=== PATIENT | female | born 1955 | race Caucasian/White ===

== ENCOUNTER 2018-12-08 20:25 | Inpatient (IN) ==
[2018-12-08] MEDS ORDERED: SODIUM CHLORIDE 0.9% INJ ONE ×3 (21:04→23:20)
[2018-12-08] MEDS ORDERED: NS 1,000 ML IV ONE (21:04)
[2018-12-08] MEDS ORDERED: PROTONIX IV ONE (21:04)
[2018-12-08] MEDS ORDERED: NEXIUM IV ONE (21:15)
[2018-12-08 21:38] LABS: BASO# 0.06 X1000 (0.0-0.2); BASO% 0.5 % (0.0-0.8); EOS# 0.05 X1000 (0.0-0.7); EOS% 0.4 % (0.0-10.0); HEMATOCRIT 24.7 % (37.0-47.0); HEMOGLOBIN 7.8 g/dL (12.0-16.0); IMM GRAN# 0.02 X1000 (0.0-0.04); IMM GRAN% 0.2 % (0.0-0.5); LYMPH% 13.1 % (20.5-51.1); MCH 31.5 PG (27-31); MCHC 31.6 g/dL (33-37); MCV 99.6 FL (81-99); MONO# 0.68 X1000 (0.11-0.59); MPV 8.2 FL (7.4-10.4); NEUT% 79.8 % (42.2-75.2); PLT 358 X1000 (130-400); RBC 2.48 XMIL (4.2-5.4); RDW 13.9 % (11.5-14.5); WBC 11.41 X1000 (4.8-10.8)
[2018-12-08 22:00] LABS: AGAP 9; ALB/GLOB RATIO 1.6; ALBUMIN 3.6 g/dL (3.5-5.0); ALKALINE PHOSPHATASE 36 U/L (32-104); BUN 32 mg/dL (8-22); CALCIUM 8.4 mg/dL (8.8-10.2); CHLORIDE 109 mmol/L (98-107); COSMO 293; CREATININE 0.8 mg/dL (0.5-0.9); ESTIMATED GFR > 60; GLUCOSE 118 mg/dL (70-104); GOT 11 U/L (10-30); GPT 10 U/L (10-36); POTASSIUM 4.8 mmol/L (3.5-5.1); SODIUM 143 mmol/L (136-145); TCO2 25 mmol/L (25-35); TOTAL BILIRUBIN 0.15 mg/dL (0.20-1.00); TOTAL PROTEIN 5.8 g/dL (6.3-8.3)
[2018-12-09] MEDS ORDERED: ZOFRAN IV PRN (00:29)
[2018-12-09] MEDS ORDERED: MORPHINE IV PRN (00:35)
[2018-12-09 00:43] LABS: INR 1.03; PROTIME 14.3 Seconds (11.0-16.0)
--- NOTE | 2018-12-09 00:51 | PROVIDER DOCUMENTATION ---
This chart was entered by Ara Phillips Scribe, acting as scribe for Melissa Klein MD. HPI-Abdominal Pain/GI Problem - General Chief Complaint: GI Bleed Stated Complaint: VOMITING BLOOD Time Seen by Provider: 12/08/18 20:50 Source: patient Allergies/Adverse Reactions: Patient Allergies Allergy/AdvReac Type Severity Reaction Status Date / Time Sulfa (Sulfonamide Allergy Intermediate RASH Verified 02/23/16 19:33 Antibiotics) Home Medications: Home Medication List Medication Instructions Recorded Confirmed Last Taken Type Cabergoline 2 mg PO DIRECTED 02/23/16 12/08/18 02/22/16 History Citalopram Hydrobromide 60 mg PO DAILY 02/23/16 12/08/18 02/22/16 History [Citalopram HBr] Lisinopril 20 mg PO DAILY 02/23/16 12/08/18 02/22/16 History Triamterene/Hydrochlorothiazid 1 each PO DAILY 02/23/16 12/08/18 02/22/16 History [Triamterene-Hctz 37.5-25 mg Cp] Hydrocodone Bit/Acetaminophen 1 ea PO BID 12/08/18 12/08/18 Unknown History [Hydrocodon-Acetaminophn 10-325] - History of Present Illness-ABD Nature of Presenting Problems: Pt is 63/F presenting to ED w/ c/o hematemesis 1-2 times today. Pt sts that she has hx up upper GI bleeding and has had to have transfusion for it in the past. Pt sts that she has had some weakness, but that is the only sx. Quality of Pain: reports: none Severity in ED: reports: moderate Onset/Duration: reports: just prior to arrival Timing: reports: still present Activities at Onset: reports: none Exposure to sick contacts?: No Modifying Factors: improves with: nothing Associated Symptoms: reports: vomiting Last BM: unsure Dark Stools Present?: reports: none noticed Rectal Bleeding: reports: none Rectal Pain: reports: none Emesis Description: reports: coffee grounds Bruising or Bleeding Gums?: No Similar Symptoms Previously?: No Recently seen or treated by another doctor?: No Review of Systems - Adult - REVIEW OF SYSTEMS - ADULT Constitutional: reports: no symptoms reported. denies: chills, fever Eyes: reports: no symptoms reported Ears, Nose, Mouth & Throat: reports: no symptoms reported Cardiovascular: reports: no symptoms reported Respiratory: reports: no symptoms reported Gastrointestinal: reports: hematemesis. denies: abdominal pain, nausea, rectal bleeding, vomiting Genitourinary: reports: no symptoms reported Musculoskeletal: reports: no symptoms reported Integumentary: reports: no symptoms reported Neurological: reports: no symptoms reported. denies: dizziness/vertigo, headache/migraines Psychiatric: reports: no symptoms reported Endocrine: reports: no symptoms reported Hematologic/Lymphatic: reports: no symptoms reported Allergic/Immunologic: reports: no symptoms reported All Other Systems: Reviewed and Negative Past History - Adult - PAST MEDICAL HISTORY-ADULT Review of Records: reports: Old Records Reviewed, Nursing Assessment Review, Medications Reviewed, Social history reviewed & non-contributory. Major Childhood Illnesses: reports: denies history Cardiovascular: reports: HTN Respiratory: reports: denies history Gastrointestinal: reports: GI bleed, ulcer Obstetrical/Gynecological: reports: denies history Genitourinary: reports: denies history Musculoskeletal: reports: denies history Neurological: reports: denies history Endocrine/Immune: reports: denies history Other Conditions: reports: denies history - PRIOR SURGERIES/PROCEDURES Surgical/Procedure History: reports: hysterectomy, , breast (BIOPSY) - IMMUNIZATION STATUS Childhood Immunizations: See Nurse Assessment Flu Vaccine: See Nurse Assessment - SOCIAL HISTORY Smoking: denies, non-smoker Substance Use: none/never Alcohol Use Frequency: never Living Situation: family Physical Exam-General - PHYSICAL EXAM-ADULT Initial Vital Signs Reviewed: Yes - CONSTITUTIONAL General Appearance: appears well, alert, no apparent distress - EYES Eyes: PERRL/EOMI, pink conjunctivae - HEAD, EARS, NOSE, MOUTH & THROAT HENMT: normocephalic/atraumatic, moist mucous membranes, normal ENT inspection - NECK Neck: non-tender, full range of motion, supple, normal inspection - RESPIRATORY Respiratory: lungs clear - CARDIOVASCULAR Cardiovascular: regular rate, rhythm - GASTROINTESTINAL (ABDOMEN) Abdominal Exam: normal bowel sounds, non tender, soft. negative: distended, rebound, tenderness - LYMPHATIC Lymphatic: no adenopathy - MUSCULOSKELETAL Back Exam: normal inspection, no CVA tenderness, no vertebral tenderness Extremity: normal range of motion, non-tender, normal gait, normal inspection - SKIN Integumentary: normal color, warm/dry - NEUROLOGIC Neurologic: grossly normal - PSYCHIATRIC Psych/Mental Status: normal mood/affect, normal thought content, normal thought process, oriented x 3 Progress - PLAN OF CARE/RESULTS Progress/Plan/Lab Results: Laboratory Results - last 24 hr 12/08/18 12/08/18 21:25 21:25 WBC 11.41 H RBC 2.48 L Hgb 7.8 L Hct 24.7 L MCV 99.6 H MCH 31.5 H MCHC 31.6 L RDW Std Deviation 13.9 Plt Count 358 MPV 8.2 Immature Gran % (Auto) 0.2 Neut % (Auto) 79.8 H Lymph % (Auto) 13.1 L Reynolds % (Auto) 6.0 Eos % (Auto) 0.4 Baso % (Auto) 0.5 Immature Gran # (Auto) 0.02 Neut # (Auto) 9.10 H Lymph # (Auto) 1.50 Reynolds # (Auto) 0.68 H Eos # (Auto) 0.05 Baso # (Auto) 0.06 Sodium 143 Potassium 4.8 Chloride 109 H Carbon Dioxide 25 Anion Gap 9 BUN 32 H Creatinine 0.8 Estimated GFR/1.73 m2 > 60 BUN/Creatinine Ratio 40 Glucose 118 H Calculated Osmolality 293 Calcium 8.4 L Total Bilirubin 0.15 L AST 11 ALT 10 Alkaline Phosphatase 36 Total Protein 5.8 L Albumin 3.6 Globulin 2.2 Albumin/Globulin Ratio 1.6 Orders Category Date Time Status CBC WITH DIFF [HEME] Stat Lab 12/08/18 21:25 Completed COMPREHENSIVE METABOLIC PANEL [CHEM] Stat Lab 12/08/18 21:25 Completed OCCULT BLOOD NON-FECES Stat Lab 12/08/18 21:04 Uncollected OCCULT BLOOD SCREENING [STOOL] Stat Lab 12/08/18 21:04 Uncollected PRBC [LRPC (RED CELLS)] [BBK] Stat Lab 12/08/18 21:54 Uncollected TYPE & SCREEN [BBK] Stat Lab 12/08/18 21:49 Uncollected 0.9% Sodium Chloride Inj [Ns] 1,000 ml Med 12/08/18 21:04 Active IV 999 mls/hr Esomeprazole [Nexium] Med 12/08/18 21:15 Discontinued 40 mg IV NOW ONE Sodium Chloride 0.9% Med 12/08/18 21:15 Discontinued 5 ml INJ NOW ONE Result Diagrams: 12/08/18 21:25 12/08/18 21:25 - CONSULTS/PCP/HOSPITALIST Notification #1 *Consult/PCP/Hospitalist*: dr. Naranjo Time Discussed: 23:43 Consult Disposition: Admit Departure - Departure Date of Disposition Decision: 12/09/18 Time of Disposition Decision: 00:50 DIAGNOSIS: GI bleed Disposition: ADMITTED INPATIENT 09 Certified Medical Emergency: Emergent Condition: Stable - Critical Care Note This patient required my direct & personal management of CC.: No Attestation - Physician/ ALBER Attestation Patient care was provided by Advanced Practice Provider:: No The physician spent face to face time with patient:: Yes Advanced Practice Provider documentation review:: Supervising physician onsite and consulted in the evaluation and care of this patient. The physician did have a face to face encounter with the patient. This chart was documented by the indicated scribe, (Ara Phillips, Scribe) and accurately reflects the services I performed and decisions made by me, Melissa Klein MD, as attested by the provider's signature.
--- NOTE | 2018-12-09 01:58 | HISTORY AND PHYSICAL ---
ATTENDING PHYSICIAN: Butch Naranjo MD. PRIMARY CARE PROVIDER: FLORENTIN Conley. CHIEF COMPLAINT: Black emesis. HISTORY OF PRESENT ILLNESS: This is a 63-year-old female who presents to the ER with past medical history of GI bleed with ulcer that was cauterized by Dr. 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 The patient states that she started having vomiting of dark black emesis today. The patient states that she did that 2 times today, and that she also had a dark tarry stool with some blood noted in the ER today. The patient is not complaining of abdominal pain. The patient does not admit to taking any over the counter NSAIDS or aspirin. The patient does have arthritis, but she takes [place] 10mg twice a day for that. The patient is not complaining of any pain at this time. States her urination has been fine. She has had no dysuria or burning with her urine. LABORATORY FINDINGS: In the ER show increased white blood cell count 11.41 with decreased red blood cell count of 2.48, and decreased hemoglobin of 7.8, and decreased hematocrit of 24.7. PAST MEDICAL HISTORY: GI bleed with ulcer that was cauterized by Dr. Tillman 2 years ago, hypertension, arthritis, depression, tumor on the pituitary gland from increased prolactin levels. PAST SURGICAL HISTORY: Hysterectomy, , and breast reduction. FAMILY HISTORY: Her mother from breast cancer. Father from lung cancer. She has a sister that has endometrial cancer 3 times, hypertension, and diabetes. 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 She does not smoke. She does not drink any alcohol. She denies any illicit drug abuse. ALLERGIES: Sulfa. MEDICATIONS: Lisinopril 20 mg p.o. daily, Celexa 40 mg p.o. daily, Cabergoline 2 mg p.o. twice a week, [place]bury 10s, one tablet p.o. b.i.d., triamterene/hydrochlorothiazide 37.5-25 mg, 1 tablet p.o. daily. LABS AND DIAGNOSTICS: White blood cell count 11.41, red blood cell count 2.48, hemoglobin 7.8, hematocrit 24.7, MCV 99.6, MCH 31.5, MCHC 31.6, platelet count 358,000. Fibrinogen is 377. Sodium is 143, potassium is 4.8, chloride 109, carbon dioxide 25, BUN 32, creatinine is 0.8. Estimated GFR is greater than 60, glucose is 118, calcium is 8.4, total bilirubin is 0.15, AST is 11, ALT is 10, alkaline phosphatase is 36. PT is 14.3, INR is 1.03. REVIEW OF SYSTEMS: A 12-point review of system has been obtained, and all are negative except what is stated above in HPI. PHYSICAL EXAMINATION: VITAL SIGNS: Pulse rate 90, respiratory rate 16, blood pressure is 112/77, O2 sats 98% on room air. Weight is 170 pounds. Height is 5 feet 6 inches. GENERAL: This is a 63-year-old female. She is lying in the ER stretcher. She is in no acute distress at present time. She is well nourished and well developed. HEENT: Atraumatic, normocephalic. Pupils equal, round, reactive to light. Mucous membranes are moist. NECK: Supple. No lymphadenopathy. Trachea is midline. No JVD. CARDIOVASCULAR: Regular rate and rhythm. No murmurs, gallops, or rubs. RESPIRATORY: Lung sounds are clear with equal chest excursion. Respirations are nonlabored. No accessory muscle usage. GASTROINTESTINAL: Abdomen is soft and tender, nondistended. Bowel sounds present x4. NEUROLOGIC: Cranial nerves 2 through 12 intact. The patient is awake, alert, oriented, able to follow all commands. No deficits noted. MUSCULOSKELETAL: Full distal strength noted. No abnormality of gait or no deformities. EXTREMITIES: No clubbing, cyanosis, or edema noted. DP and PT pulses are present and palpable. SKIN: Warm, dry, and intact. No rashes, bruises. No diaphoresis. ASSESSMENT AND PLAN: 1. Gastrointestinal bleed. We will admit this patient to the ICU unit. The patient is having acute blood loss. She has had vomiting a couple times of dark emesis. She has also had bloody stool noted in the ER. We are going to transfuse this patient with 1 unit of blood. We will recheck the hemoglobin and hematocrit in the morning. We have consulted Dr. Spear for Gastroenterology management. We are also going to start this patient on IV fluid hydration, normal saline 100 mL/h. 2. Hypertension. We will hold off on all p.o. medications at this time, until patient is seen by Gastroenterology. Blood pressure is stable at this time, 112/77. 3. Arthritis. The patient does take [place] twice a day. She has some arthritis in her shoulder and noted in her back, so we are going to start the patient on morphine p.r.n. for her arthritis. 4. Gastrointestinal prophylaxis. We are going to start this patient on Nexium 40 mg IV b.i.d. 5. Deep venous thrombosis prophylaxis. We will start this patient on SCDs. She cannot have any blood thinners at this time as she is having acute gastrointestinal bleed. We will admit this patient to the ICU. We are going to hold off on all p.o. medications at this time, until she is seen by GI. We are going to keep the patient n.p.o. We are going to start her on IV fluid hydration. We are going to give her a unit of blood and recheck hemoglobin and hematocrit in the morning, after the blood is transfused. We are going to consult Dr. Spear for acute GI bleed. I have ordered Zofran for nausea, I have ordered morphine for her arthritis pain. We are going to monitor this patient closely. Dictated by FLORENTIN Mckay for Butch Naranjo MD I have performed a face to face diagnostic evaluation. Labs/ Xrays- reviewed. Exam- chest- clear, CV- regular. AP- GI Bleed- admit, NPO, GI consult, PPI. Dr. Naranjo cc: MD Ivan Georges MD Alicia L. Hamman, CRNP MTDD
[2018-12-09] MEDS: NS 1,000 ML IV SCH ×3 (02:16→20:22)
[2018-12-09 05:37] LABS: BASO# 0.04 X1000 (0.0-0.2); BASO% 0.5 % (0.0-0.8); EOS# 0.03 X1000 (0.0-0.7); EOS% 0.4 % (0.0-10.0); HEMOGLOBIN 7.2 g/dL (12.0-16.0); LYMPH# 1.57 X1000 (1.2-3.4); LYMPH% 20.6 % (20.5-51.1); MCH 32.6 PG (27-31); MCHC 32.7 g/dL (33-37); MCV 99.5 FL (81-99); MONO# 0.62 X1000 (0.11-0.59); MONO% 8.1 % (1.7-9.3); MPV 8.6 FL (7.4-10.4); NEUT# 5.36 X1000 (1.4-6.5); NEUT% 70.4 % (42.2-75.2); PLT 284 X1000 (130-400); RBC 2.21 XMIL (4.2-5.4); RDW 13.6 % (11.5-14.5); WBC 7.62 X1000 (4.8-10.8)
[2018-12-09 05:45] LABS: AGAP 7; BUN 25 mg/dL (8-22); CALCIUM 8.5 mg/dL (8.8-10.2); CHLORIDE 110 mmol/L (98-107); COSMO 286; CREATININE 0.6 mg/dL (0.5-0.9); ESTIMATED GFR > 60; GLUCOSE 102 mg/dL (70-104); POTASSIUM 4.3 mmol/L (3.5-5.1); SODIUM 141 mmol/L (136-145); TCO2 24 mmol/L (25-35)
--- NOTE | 2018-12-09 07:33 | Diag Imaging Result Doc PS360 ---
KUB ABDOMEN - 12/09/2018 INDICATION: GI bleed COMPARISON: None FINDINGS: There is a nonobstructive bowel gas pattern. No free air or abdominal calcifications. IMPRESSION: No acute disease. Electronically signed by Tony Vo 12/09/2018 7:31 AM
[2018-12-09] MEDS ORDERED: PROTONIX IV SCH (09:00)
[2018-12-09] MEDS: NEXIUM IV SCH ×2 (09:55→20:22)
--- NOTE | 2018-12-09 10:09 | GASTROENTEROLOGY CONSULTATION ---
DATE: 12/09/2018 REASON FOR CONSULTATION: Hematemesis and melena. HISTORY OF PRESENT ILLNESS: Ms. 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 Started at 12:30 p.m. yesterday while at work. She went home and around 3 p.m. had a fall from a standing position without any acute injuries. At that time she had another episode of hematemesis with black liquid and therefore presented here to the ED. While in the ED she had 2 episodes of melena. She complains of only associated weakness. No abdominal pain, gross hematemesis or bright red blood or hematochezia. She denies any weight loss. She was at her usual state of health prior to onset. She had a colonoscopy by Dr. Tillman 2 years ago. She is not on any blood thinners and avoids NSAIDs given her prior bleeding history. REVIEW OF SYSTEMS: As per HPI, otherwise 12 point review of systems is negative. PAST MEDICAL HISTORY: As per HPI. PAST SURGICAL HISTORY: Hysterectomy, , bilateral breast reduction. FAMILY HISTORY: No family history of GI malignancies. SOCIAL HISTORY: No smoking, alcohol or drug use. MEDICATIONS: Lisinopril, Celexa, Dyazide, Cabergoline and Sylvia. ALLERGIES: To sulfa. PHYSICAL EXAMINATION: Vital Signs: Temperature 98.2, heart rate 73, respiratory rate 20, blood pressure 112/67, O2 saturation 97% on room air. General: Patient is awake, alert, oriented, in no acute distress. HEENT: Sclerae are anicteric. Moist mucous membranes. Extraocular motor intact. Neck: Supple. Bounding IJ pulse. No JVD. Cardiac: Regular rate and rhythm. No murmurs. Lungs: Clear to auscultation bilaterally. No wheezing. Abdomen: Soft, nontender, nondistended. Normoactive bowel sounds. No rebound or guarding. Extremities: No clubbing, cyanosis, or edema. Neurologic: Nonfocal. LABS: White count of 7.6 from 11.4 yesterday, hemoglobin is 7.2 from 7.8 yesterday after 1 unit of packed red blood cells, platelets of 284,000. INR 1.03. Sodium 141, potassium of 4.3, chloride of 110, bicarb 24, BUN of 25, creatinine 0.6, glucose of 102. LFTs are within normal limits. TSH of 0.02. IMAGING: Abdominal x-ray shows no acute disease. ASSESSMENT AND PLAN: Ms. Glenny Israel is a 63-year-old woman with past medical history of hypertension and prior bleeding duodenal ulcers, history of gastric ulcers, esophageal ulcer, duodenal diverticulum, and angiectasias who presents with recurrent hematemesis with black liquid and melena. Her hemoglobin today is 7.2 after 1 unit of packed red blood cells from 7.8, which is concerning for ongoing bleeding. Her abdomen is benign. Her vital signs are stable currently. Her coags are within normal limits. Platelets are normal. Her last hemoglobin is unknown. Her MCV is 99.6. She is NPO currently. She is receiving Nexium 40 mg IV q.12, IV fluids, antiemetics as needed and morphine for pain. We will plan for diagnostic EGD today to evaluate for bleeding ulcers, particularly in the site of her prior duodenal ulcers seen in the duodenal diverticulum in 2016 in 2014. We will continue to trend her hemoglobin and hematocrit every 6 to 8 hours pending her endoscopic findings. Thank you for this consult. We will follow with you. Please call with any questions or concerns. # GI bleed # History of PUD # Duodenal diverticulum # Anemia # History of small bowel angiectasias cc: Michael Blount MD [facility]
[2018-12-09] MEDS ORDERED: XYLOCAINE-MPF 2% ONE (11:45)
[2018-12-09] MEDS ORDERED: DIPRIVAN 1% ONE (11:46)
--- NOTE | 2018-12-09 12:44 | PROGRESS NOTE ---
DATE: 12/09/2018 SUBJECTIVE: The patient's chart was reviewed. 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 Hemoglobin and hematocrit upon admission were 7.8 and 24.7. Vital signs were reasonably stable with a blood pressure 112/77. The patient was started on IV fluids. One unit of packed red blood cells were provided. This morning, her hemoglobin hematocrit have dropped despite receiving that 1 unit of blood. Hemoglobin and hematocrit are 7.2 and 22.0. Vital signs, however, remain acceptable. She has had 3 additional melenic stools since admission, the last approximately 2 to 2-1/[address] Spear has been consulted. Urgent EGD is scheduled in the next several hours. The patient denies fevers, chills, nausea, vomiting, or shortness of breath at present time. OBJECTIVE: Vital signs: T-max 98.5 degrees, heart rate 84 to 91, respirations 13 to 17, blood pressure 102 to 151/67 to 88. General: Well nourished, well developed, no acute distress. Cardiovascular: Regular rate and rhythm. No significant murmurs, rubs, or gallops. Pulmonary: Clear to auscultation bilaterally. Abdomen: Soft, nontender, nondistended. Positive bowel sounds. Extremities: Moves all extremities well. No significant clubbing, cyanosis, or edema. Dermatologic: Evaluation reveals no evidence of rash. LABORATORY DATA: White blood cell count 7.62, hemoglobin 7.2, hematocrit 22.0, platelet count 284,000. Sodium 141, potassium 4.3, chloride 110, bicarb 24, BUN 25, creatinine 0.6, glucose 102, calcium 8.5. TSH 0.02. ASSESSMENT AND PLAN: 1. Upper gastrointestinal bleed - patient's hemoglobin and hematocrit remain low despite transfusion. As she does appear to be actively bleeding, we will transfuse 1 additional unit of packed red blood cells. EGD is scheduled for the next several hours. We will continue IV proton pump inhibitor. We will continue IV fluids. We will hold patient n.p.o. 2. Hypertension - patient's home medications have been held. Blood pressures are reasonably controlled although intermittently low at present time. We will follow this closely, especially in the setting of an upper gastrointestinal bleed. 3. Arthritis - the patient is treated with [place] twice daily as an outpatient. As-needed morphine was provided upon admission. With marginal blood pressure, we will hold this. We will plan to resume home dose Bristol once able. 4. Suppressed TSH - it does not appear the patient has a history of hyperthyroidism. In the setting of a history of a pituitary tumor, this will need to be followed closely as an outpatient. We will hold off on medical intervention for now. 5. History of a prolactin-secreting pituitary tumor - the patient is treated with Cabergoline as an outpatient. We will resume this once able. 6. Prophylaxis - patient will be placed on SCDs. She is not a candidate for anticoagulants in the setting of a gastrointestinal bleed. 7. Disposition - at this point, patient continues to require intermediate care in a hospital setting. We will plan discharge home once appropriate. cc: MD Michael Gonzalez MD
[2018-12-09 14:34] LABS: BASO# 0.05 X1000 (0.0-0.2); BASO% 0.7 % (0.0-0.8); EOS# 0.03 X1000 (0.0-0.7); EOS% 0.4 % (0.0-10.0); HEMATOCRIT 25.4 % (37.0-47.0); HEMOGLOBIN 8.4 g/dL (12.0-16.0); LYMPH# 1.48 X1000 (1.2-3.4); LYMPH% 22.1 % (20.5-51.1); MCH 32.6 PG (27-31); MCHC 33.1 g/dL (33-37); MCV 98.4 FL (81-99); MONO# 0.55 X1000 (0.11-0.59); MONO% 8.2 % (1.7-9.3); MPV 8.7 FL (7.4-10.4); NEUT% 68.6 % (42.2-75.2); PLT 294 X1000 (130-400); RBC 2.58 XMIL (4.2-5.4); WBC 6.71 X1000 (4.8-10.8)
[2018-12-09] MEDS: NORCO-10 PO PRN (18:01)
[2018-12-09] MEDS: SODIUM CHLORIDE 0.9% INJ SCH (20:22)
[2018-12-09] MEDS ORDERED: FIORICET PO ONE (23:12)
[2018-12-09 23:45] LABS: HEMATOCRIT 24.6 % (37.0-47.0); HEMOGLOBIN 8.1 g/dL (12.0-16.0)
[2018-12-10] MEDS: OFIRMEV 1000 MG/ISOTONIC SOLN 1,000 MG/100 ML BOTTLE IV PRN (06:37)
[2018-12-10] MEDS: NS 1,000 ML IV SCH ×2 (06:38→18:36)
[2018-12-10 07:17] LABS: BASO# 0.05 X1000 (0.0-0.2); BASO% 0.9 % (0.0-0.8); EOS# 0.07 X1000 (0.0-0.7); EOS% 1.3 % (0.0-10.0); HEMATOCRIT 22.9 % (37.0-47.0); HEMOGLOBIN 7.5 g/dL (12.0-16.0); LYMPH# 1.44 X1000 (1.2-3.4); LYMPH% 26.3 % (20.5-51.1); MCH 31.9 PG (27-31); MCHC 32.8 g/dL (33-37); MCV 97.4 FL (81-99); MONO# 0.48 X1000 (0.11-0.59); MONO% 8.8 % (1.7-9.3); MPV 8.4 FL (7.4-10.4); NEUT# 3.44 X1000 (1.4-6.5); NEUT% 62.7 % (42.2-75.2); PLT 269 X1000 (130-400); RBC 2.35 XMIL (4.2-5.4); RDW 14.7 % (11.5-14.5); WBC 5.48 X1000 (4.8-10.8)
[2018-12-10 07:33] LABS: AGAP 10; ALB/GLOB RATIO 1.6; ALBUMIN 3.1 g/dL (3.5-5.0); ALKALINE PHOSPHATASE 31 U/L (32-104); BUN 15 mg/dL (8-22); CHLORIDE 111 mmol/L (98-107); COSMO 289; CREATININE 0.6 mg/dL (0.5-0.9); ESTIMATED GFR > 60; GLUCOSE 90 mg/dL (70-104); GOT 9 U/L (10-30); GPT 7 U/L (10-36); POTASSIUM 3.8 mmol/L (3.5-5.1); SODIUM 145 mmol/L (136-145); TCO2 24 mmol/L (25-35)
[2018-12-10] MEDS: NEXIUM IV SCH ×2 (08:20→21:44)
[2018-12-10] MEDS: NORCO-10 PO PRN ×3 (09:08→21:43)
--- NOTE | 2018-12-10 10:40 | PROGRESS NOTE ---
DATE: 12/10/2018 SUBJECTIVE: Over the course of the last 24 hours, patient states she has done reasonably well. The patient was taken for EGD. Several ulcers were identified, but no active bleeding was noted. Patient was transfused 1 unit of packed red blood cells yesterday. Despite this, patient's hemoglobin and hematocrit are largely unchanged today. The patient states her last melenic bowel movement was last night. She denies abdominal discomfort, nausea, vomiting, shortness of breath, chest pains, or palpitations. She is tolerating a liquid diet. OBJECTIVE: T-max 99.0 degrees, heart rate 63 to 76, respirations 12 to 18, blood pressure 105- 137/60-87. General: Well nourished, well developed, in no acute distress. Cardiovascular: Regular rate and rhythm. No significant murmurs, rubs, or gallops. Pulmonary: Clear to auscultation bilaterally. Abdomen: Soft, nontender, nondistended. Positive bowel sounds. Extremities: Moves all extremities well. No significant clubbing, cyanosis, or edema. Dermatologic: Evaluation reveals no evidence of rash. Laboratory Data: White blood cell count 5.48, hemoglobin 7.5, hematocrit 22.9, platelet count is 269,000. Sodium 145, potassium 3.8, chloride 111, bicarb 24, BUN 15, creatinine 0.6, glucose 90, calcium 9.0. Total bilirubin 0.20, total protein 5.0, albumin 3.1, alkaline phosphatase 31, AST 9, ALT 7. ASSESSMENT AND PLAN: 1. Upper gastrointestinal bleed-the patient's hemoglobin and hematocrit remain low despite transfusion upon admission and again yesterday. The patient has demonstrated no evidence of active bleeding at this point. Her vital signs are stable. At this point, we will continue supportive care. Should patient's hemoglobin drop below 7, we will plan to re-transfuse. The patient is being treated with a clear liquid diet. I appreciate Dr. Spear's consultation. 2. Hypertension-antihypertensive agents have been held. Blood pressure remains at times marginal. We will continue to follow in the intensive care unit setting. 3. Arthritis-the patient is treated with [place] twice daily as an outpatient. This has been resumed secondary to increasing pain. Once again, we will follow this with marginal blood pressure. 4. Headache-this likely is caffeine withdrawal. The patient is being treated symptomatically. She has no evidence of neurological deficits associated. 5. Suppressed TSH-this is quite interesting, but likely noncontributory to her current situation. She has a history of a pituitary tumor. Thus, the question is raised whether the decreased TSH may be secondary to an actively secreting tumor. We will defer outpatient management. 6. History of a prolactin secreting pituitary tumor-patient is on cabergoline. We will continue this. As above, the patient does have a suppressed TSH which will likely need to be evaluated as an outpatient. 7. Prophylaxis-we will continue patient on sequential compression devices. She is not a candidate for anticoagulation. 8. Disposition-at this point, patient continues to require residential care in a hospital setting. We will plan discharge home once appropriate. cc: MD Michael Gonzalez MD
[2018-12-10 13:33] LABS: HEMATOCRIT 28.5 % (37.0-47.0); HEMOGLOBIN 9.1 g/dL (12.0-16.0)
[2018-12-10 21:11] LABS: HEMATOCRIT 22.4 % (37.0-47.0); HEMOGLOBIN 7.3 g/dL (12.0-16.0)
[2018-12-10] MEDS: SODIUM CHLORIDE 0.9% INJ SCH (21:44)
--- NOTE | 2018-12-10 22:22 | PROVIDER PROGRESS NOTE ---
Progress Note S: EGD yesterday revealed esophageal ulcer and small gastric ulcers that were cleaned based. Random gastric biospies obtained to rule out H pylori. Two large duodenal diverticulum were found. There was no signs of active bleeding during EGD. Overnight, patient had one small melenic stool that is decreased in volume compared to prior. O: Last Vital Signs Temp 99.2 F 12/10/18 20:00 Pulse 71 12/10/18 20:02 Resp 18 12/10/18 20:02 BP 130/81 12/10/18 20:02 Pulse Ox 98 12/10/18 20:02 Height 5 ft 6 in Weight 168 lb 9.6 oz GEN: awake, alert, NAD HEENT: anicteric, MMM, EOMI NECK: supple, no JVD PULM: CTAB no wheezing ABD: soft NT/ND, NABS EXT: no cce NEURO: nonfocal LABS: 12/10/18 12/10/18 06:47 06:47 WBC 5.48 Hgb 7.5 L Plt Count 269 Sodium 145 Potassium 3.8 Chloride 111 H Carbon Dioxide 24 L BUN 15 Creatinine 0.6 Total Bilirubin 0.20 AST 9 L ALT 7 L Alkaline Phosphatase 31 L Total Protein 5.0 L Albumin 3.1 L A/P: Ms. Glenny Israel is a 63-year-old woman with past medical history of hypertension, h/o bleeding PUD, esophageal ulcer, duodenal diverticuli, and SB angiectasias who presents with recurrent hematemesis and melena found to have clean-based esophageal ulcer and small gastric ulcers. Large diverticuli found in the 2nd portion of duodenum. No evidence of active bleeding found. Random gastric biopsies obtained to rule out H pylori. Melenic stools likely represent old blood given normal VS and decreased volume. # Bleeding gastric ulcers: f/u path; continue PPI IV BID, clear liquid diet, avoid NSAIDs/blood thinners; transfused 2 units pRBC today; transfuse prn goal hgb 7-8 # Esophageal ulcer: noted; benign appearing # HTN: holding home meds # N/V: antiemetics prn Will follow with you. Please call with questions
[2018-12-11] MEDS: NS 1,000 ML IV SCH ×3 (02:00→23:14)
[2018-12-11] MEDS: OFIRMEV 1000 MG/ISOTONIC SOLN 1,000 MG/100 ML BOTTLE IV PRN ×2 (02:01→08:20)
[2018-12-11] MEDS: NORCO-10 PO PRN ×4 (03:26→21:38)
[2018-12-11 05:37] LABS: HEMOGLOBIN 7.1 g/dL (12.0-16.0)
[2018-12-11] MEDS: NEXIUM IV SCH ×2 (08:20→21:39)
[2018-12-11] MEDS: SODIUM CHLORIDE 0.9% INJ SCH ×2 (08:21→21:38)
--- NOTE | 2018-12-11 09:10 | ENDOSCOPY OPERATIVE NOTE ---
[facility] ENDOSCOPY OPERATIVE NOTE , PATIENT: Glenny Israel ADMISSION DATE: 12/09/2018 MR#: [id number] : 1955 ACCT #: EGD PROCEDURE REPORT PROCEDURE DATE: 12/09/2018 SURGEON: Ivan Spear MD STATUS: inpatient CAKE FORMER: PREOPERATIVE DIAGNOSIS: The patient is a 63 yr old female here for an EGD due to hematemesis and yasmin francis. PROCEDURE PERFORMED: EGD w/ biopsy MEDICATIONS: Per Anesthesia TOPICAL ANESTHETIC: none CONSENT: The patient understands the risks and benefits of the procedure and understands that these r isks include, but are not limited to: sedation, allergic reaction, infection, perforation and/or bleeding. Alternative means of evaluation and treatment include, among others: physical exam, x-rays, and/or surgical intervention. The patient elects to proceed with this endoscopic procedure. HISORY AND PHYSICAL: 12/09/2018 function. Hand hygiene and appropriate measures for infection prevention was taken. After the risks, benefits and alternatives of the procedure were thoroughly explained, Informed consent was verified, confirmed and timeout was successfully executed by the treatment team. The patient was anesthetized with topical anesthesia and the GY12-[id number] ([id number]) endoscope was introduced through the mouth and advanced to the second portion of the duoden um. Retroflexion was performed in the stomach and revealed no abnormalities. The gastroscope was then slowly withdraw n and removed. ESOPHAGUS: A Schatzki ring was found 35 cm from the incisors and was widely open. A single non-blee ding, shallow and clean-based ulcer ranging between 3-7mm in size was found at the gastroesophageal junction. STOMACH: Three non-bleeding and clean-based ulcers ranging between 3-8mm in size were found. The st omach was otherwise normal. Random biopsies performed using cold forceps to rule out H pylori. Sample sent for histolog y. DUODENUM: Two large diverticuli were found in the 2nd part of the duodenum. There was no stigmata of recent bleeding. The duodenal mucosa showed no abnormalities. SPECIMENS REMOVED: Yes ADVERSE EVENTS: There were no complications. POSTOPERATIVE DIAGNOSIS: 1. Schatzki ring was found 35 cm from the incisors 2. Single ulcer ranging between 3-7mm in size was found at the gastroesophageal junction 3. Three ulcers ranging between 3-8mm in size were found 4. The stomach was otherwise normal; biopsy was performed 5. Two large diverticuli were found in the 2nd part of the duodenum 6. The duodenal mucosa showed no abnormalities RECOMMENDATIONS: Start clear liquid diet Continue IV PPI BID Trend H/H every 8 hours, transfuse prn for goal hgb 7-8 Avoid NSAIDs/blood thinners Await pathology results REPEAT EXAM: Return in 3 months for EGD. Ivan Spear MD eSigned: Ivan Spear MD 12/09/2018 12:59 PM cc: PATIENT NAME: Glenny Israel MR#: [id number]
[2018-12-11] MEDS: CENTRUM SILVER PO SCH (09:33)
[2018-12-11] MEDS: ICAR-C PO SCH ×2 (09:33→21:38)
[2018-12-11] MEDS: FIORICET PO PRN ×2 (17:11→22:47)
--- NOTE | 2018-12-11 17:20 | GASTROENTEROLOGY PROGRESS NOTE ---
DATE: 12/11/2018 SUBJECTIVE: Patient resting in bed. She is feeling better. She had some old blood in her stools yesterday. She denies any nausea, vomiting, or vomiting blood. She denies any fevers, rigors, or chills. OBJECTIVE: Vital Signs: Temperature 98.2 degrees, pulse rate 65, respiratory rate 16, blood pressure 150/75, saturating 99% on room air. Body weight of 172 pounds, 1 ounces. BMI of 27.8 kg. General Appearance: Moderately-built, lying in bed, in no acute distress. HEENT: Pale conjunctivae. No icterus. Neck: Supple. Abdomen: Soft, nontender, nondistended. No guarding. No rebound. Extremities: No signs of clubbing. Neurologic: Alert, awake, oriented. LABORATORY DATA: Hemoglobin and hematocrit is 7.1, 22.0. The rest of the labs were from yesterday, and they were stable and no microbiology. She has received 2 units of blood transfusion. She had an EGD done by Dr. Spear on 12/09 which showed Schatzki ring at 35 cms, Small ulcer ranging 3 to 7 mm at the gastroesophageal junction. Three ulcers 3 to 8 mm were found in the stomach. Biopsies were obtained, 2 large diverticula found 2nd portion of duodenum. The duodenal mucosa appeared normal. IMPRESSION/PLAN: 1. Bleeding gastric ulcers. Follow up on the pathology. Continue PPIs b.i.d. We will continue to watch the serial hematocrits. Transfuse as needed. Goal hemoglobin 7 to 8 g/dL. 2. Esophageal ulcer. Continue PPIs. She will need a repeat EGD in 3 months to document healing of the gastric and esophageal ulcers. 3. Hypertension per the primary team. 4. Nausea, vomiting. Continue antiemetics as needed. 5. Reflux disease. She will continue to follow gastric reflux lifestyle changes. 6. Duodenal diverticula. Aware. 7. This small bowel angio ectasias. Aware. 8. Melena is improving slowly. She had her last bowel movement yesterday which was containing old blood. 9. We will follow along. The above plans discussed with the patient and all questions answered. Please call us with any further questions. cc: MD Michael Gardner MD Alicia L. Hamman, CRNP MTDD
[2018-12-12] MEDS: FIORICET PO PRN ×5 (03:10→23:44)
[2018-12-12] MEDS: NORCO-10 PO PRN ×3 (05:51→18:56)
[2018-12-12 07:40] LABS: HEMATOCRIT 17.4 % (37.0-47.0)
[2018-12-12 07:41] LABS: HEMOGLOBIN 5.7 g/dL (12.0-16.0)
[2018-12-12] MEDS: NS 1,000 ML IV SCH ×2 (07:57→21:10)
[2018-12-12] MEDS: SODIUM CHLORIDE 0.9% INJ SCH ×2 (08:27→21:11)
[2018-12-12] MEDS: ICAR-C PO SCH ×2 (08:27→21:11)
[2018-12-12] MEDS: CENTRUM SILVER PO SCH (08:27)
[2018-12-12] MEDS: NEXIUM IV SCH ×2 (08:27→21:11)
[2018-12-12] MEDS ORDERED: NS 500 ML ONE (10:20)
--- NOTE | 2018-12-12 10:23 | PROGRESS NOTE ---
DATE: 12/12/2018 SUBJECTIVE: Ms. Chu is feeling better. Headache is better. Her hemoglobin was down below 6. I am going to give her 2 units of packed red blood cells. She denies any abdominal pain or nausea. OBJECTIVE: Vital Signs: Temp 98.6 degrees, pulse 87, respirations 16, blood pressure 133/76. HEENT: Pupils are equal and round. Lungs: Clear in all lung baca. Cardiovascular: Regular rhythm and rate without murmur or S3. Abdomen: Soft, nondistended, nontender. Skin: Warm and dry. Weight 172 pounds. LABORATORY DATA: Hemoglobin was 7 yesterday, 5.7 this morning. Hematocrit went from 22 to 17.4. ASSESSMENT AND PLAN: 1. Bleeding gastric ulcers. Continue proton pump inhibitors at high dose. Continue intravenous proton pump inhibitor. Will give her 2 units of packed red blood cells this morning. 2. Esophageal ulcers. She will need a repeat esophagogastroduodenoscopy in 3 months. Continue high-dose proton pump inhibitors. I think I will add Carafate as well. 3. Hypertension. Blood pressure is controlled. 4. Nausea and vomiting, resolved. 5. Reflux disease. Still on proton pump inhibitors. Continue to follow gastric reflux lifestyle changes. 6. Duodenal diverticula. Aware. 7. Small bowel angioectasias, which I suspect may be contributing to the bleeding. 8. Melena from above. PRESENT ORDERS: Nexium 40 mg IV every 12 hours. She is on iron carbonyl and ascorbic acid 1 twice a day. IV fluids at 100 mL an hour. For her headaches, I think the butalbital or the Fioricet has helped her. I will add Carafate 1 grams 4 times a day. cc: Michael Blount MD
[2018-12-12] MEDS: CARAFATE LIQUID PO SCH ×3 (11:00→21:10)
--- NOTE | 2018-12-12 23:41 | PROVIDER PROGRESS NOTE ---
Progress Note S: No acute overnight events. Afebrile. No N/V/F, CP, SOB. She reports having a "dark stool" overnight. No gross hematochezia. O: Last Vital Signs Temp 98.6 F 12/12/18 23:40 Pulse 85 12/12/18 23:40 Resp 18 12/12/18 23:40 BP 126/73 12/12/18 23:40 Pulse Ox 100 12/12/18 23:40 Height 5 ft 6 in Weight 172 lb GEN: awake, alert, NAD HEENT: anicteric, MMM, EOMI NECK: supple, no JVD PULM: CTAB no wheezing ABD: soft NT/ND, NABS EXT: no cce NEURO: nonfocal LABS: 12/12/18 07:25 Hgb 5.7 L* D Hct 17.4 L D EGD 12/09 POSTOPERATIVE DIAGNOSIS: 1. Schatzki ring was found 35 cm from the incisors 2. Single ulcer ranging between 3-7mm in size was found at the gastroesophageal junction 3. Three ulcers ranging between 3-8mm in size were found 4. The stomach was otherwise normal; biopsy was performed 5. Two large diverticuli were found in the 2nd part of the duodenum 6. The duodenal mucosa showed no abnormalities A/P: Ms. Glenny Israel is a 63-year-old woman with past medical history of hypertension, h/o bleeding PUD, esophageal ulcer, duodenal diverticuli, and SB angiectasias who presents with recurrent hematemesis and melena found to have clean-based esophageal ulcer and small gastric ulcers. Large diverticuli found in the 2nd portion of duodenum. No evidence of active bleeding found on initial EGD. Random gastric biopsies pending. Hgb this AM 5.7. Transfused 2 units pRBCs. Repeat hgb ordered. # Bleeding gastric ulcers: f/u path; continue PPI IV BID, transfused 2 units pRBC today; transfuse prn goal hgb 7-8, f/u H/H: NPO for repeat EGD in AM # Esophageal ulcer: noted; benign appearing # HTN: holding home meds # N/V: antiemetics prn Will follow with you. Please call with questions
[2018-12-13] MEDS: NORCO-10 PO PRN ×3 (01:01→16:20)
[2018-12-13 01:25] LABS: HEMATOCRIT 23.2 % (37.0-47.0); HEMOGLOBIN 7.7 g/dL (12.0-16.0)
[2018-12-13] MEDS: CARAFATE LIQUID PO SCH ×4 (02:31→20:12)
[2018-12-13] MEDS ORDERED: XYLOCAINE-MPF 2% ONE (08:13)
[2018-12-13] MEDS ORDERED: DIPRIVAN 1% ONE (08:13)
--- NOTE | 2018-12-13 08:32 | ENDOSCOPY OPERATIVE NOTE ---
[facility] ENDOSCOPY OPERATIVE NOTE , PATIENT: Glenny Israel ADMISSION DATE: 12/13/2018 MR#: [id number] [facility] 1955 [id number] EGD PROCEDURE REPORT PROCEDURE DATE: 12/13/2018 SURGEON: Ivan Spear MD STATUS: inpatient RUG REPAIRER: PREOPERATIVE DIAGNOSIS: The patient is a 63 yr old female here for an EGD due to anemia, melena, and worsening anemia and persistent melena in setting of known gastric ulcers seen on recent EGD. PROCEDURE PERFORMED: EGD, diagnostic MEDICATIONS: Per Anesthesia TOPICAL ANESTHETIC: none CONSENT: The patient understands the risks and benefits of the procedure and understands that these r isks include, but are not limited to: sedation, allergic reaction, infection, perforation and/or bleeding. Alternative means of evaluation and treatment include, among others: physical exam, x-rays, and/or surgical intervention. The patient elects to proceed with this endoscopic procedure. HISORY AND PHYSICAL: 12/13/2018 function. Hand hygiene and appropriate measures for infection prevention was taken. After the risks, benefits and alternatives of the procedure were thoroughly explained, Informed consent was verified, confirmed and timeout was successfully executed by the treatment team. The patient was anesthetized with topical anesthesia and the [id number]-[id number] ([id number]) endoscope was introduced through the mouth and advanced to the second portion of the duoden um. Retroflexion was performed in the stomach and revealed a hiatal hernia. The gastroscope was then slowly withdrawn and removed. ESOPHAGUS: The z-line was noted at 35cm from the incisors. The z-line appeared normal. The mucosa of the esophagus appeared normal. STOMACH: Three non-bleeding and clean-based ulcers ranging between 3-7mm in size were found. DUODENUM: Two large diverticuli were found in the 2nd part of the duodenum containing food debris. No evidence of blood or stigmata of recent bleeding. SPECIMENS REMOVED: No ADVERSE EVENTS: There were no complications. POSTOPERATIVE DIAGNOSIS: ESOPHAGUS: The z-line was noted at 35cm from the incisors. The z-line appeared normal. The mucosa of the esophagus appeared normal. STOMACH: Three non-bleeding and clean-based ulcers ranging between 3-7mm in size were found. DUODENUM: Two large diverticuli were found in the 2nd part of the duodenum containing food debris. RECOMMENDATIONS: Advance diet as tolerated Continue PPI IV BID Trend H/H qdaily and transfuse prn to maintain hgb 7-8 Avoid NSAIDs REPEAT EXAM: Ivan Spear MD eSigned: Ivan Spear MD 12/13/2018 8:31 AM cc: PATIENT NAME: Glenny Israel MR#: [id number]
[2018-12-13] MEDS: CENTRUM SILVER PO SCH (09:13)
[2018-12-13] MEDS: ICAR-C PO SCH ×2 (09:13→20:11)
[2018-12-13] MEDS: NEXIUM IV SCH ×2 (09:14→20:12)
--- NOTE | 2018-12-13 10:06 | PROGRESS NOTE ---
DATE: 12/13/2018 SUBJECTIVE: Ms. Israel is feeling better. Would like to go home. She had an EGD repeated today per Dr. Spear and there were 2 to 3 nonbleeding, clean-based ulcers ranging 3 to 7 mm in size, 2 large diverticula found in the 2nd part of duodenum containing food debris. Her hemoglobin this morning was 7.7. She received 2 units of blood yesterday, so we will watch her today. OBJECTIVE: Vital signs: Temperature 97.7 degrees, pulse 76, respirations 20, blood pressure 114/57. HEENT: Pupils are equal and round. No distended neck veins. Lungs: Clear in all lung baca. Cardiovascular: Regular rhythm and rate without murmur or S3. Abdomen: Soft. Skin: Warm and dry. Genitourinary: Urine output 5000 mL. ASSESSMENT AND PLAN: 1. Schatzki ring found at 35 cm from the incisors. 2. Three ulcers ranging from 3 to 8 mm in size were found. Single ulcer ranging from 3 to 7 mm in the gastroesophageal junction, otherwise normal with no active bleeding. 3. Two large diverticula found in the 2nd part duodenum, duodenal mucosa showed no abnormalities. REVIEW OF ORDERS: Put her back on soft diet. Continue high-dose proton pump inhibitor. She is on Nexium 40 mg IV q.12 and I put her on Carafate 1 g q.6 hours. We will see how we do. Follow hemoglobin and hope to let her go home tomorrow morning. cc: Michael Blount MD
[2018-12-13] MEDS: NS 1,000 ML IV SCH ×3 (11:18→20:15)
[2018-12-13] MEDS: FIORICET PO PRN ×2 (11:23→20:11)
[2018-12-13] MEDS: SODIUM CHLORIDE 0.9% INJ SCH (20:12)
[2018-12-14] MEDS: NORCO-10 PO PRN ×3 (01:17→14:28)
[2018-12-14] MEDS: CARAFATE LIQUID PO SCH ×3 (01:17→14:28)
[2018-12-14] MEDS: NS 1,000 ML IV SCH ×3 (03:50→11:03)
[2018-12-14] MEDS: FIORICET PO PRN ×3 (04:34→17:38)
[2018-12-14 06:26] LABS: BASO# 0.03 X1000 (0.0-0.2); BASO% 0.5 % (0.0-0.8); EOS# 0.19 X1000 (0.0-0.7); EOS% 2.9 % (0.0-10.0); HEMATOCRIT 21.9 % (37.0-47.0); HEMOGLOBIN 7.1 g/dL (12.0-16.0); LYMPH# 1.72 X1000 (1.2-3.4); LYMPH% 25.9 % (20.5-51.1); MCH 31.3 PG (27-31); MCHC 32.4 g/dL (33-37); MCV 96.5 FL (81-99); MONO# 0.68 X1000 (0.11-0.59); MONO% 10.2 % (1.7-9.3); MPV 9.1 FL (7.4-10.4); NEUT# 4.03 X1000 (1.4-6.5); NEUT% 60.5 % (42.2-75.2); PLT 341 X1000 (130-400); RBC 2.27 XMIL (4.2-5.4); RDW 17.9 % (11.5-14.5); WBC 6.65 X1000 (4.8-10.8)
[2018-12-14] MEDS: ICAR-C PO SCH (08:38)
[2018-12-14] MEDS: CENTRUM SILVER PO SCH (08:38)
[2018-12-14] MEDS: NEXIUM IV SCH (08:38)
[2018-12-14] MEDS: SODIUM CHLORIDE 0.9% INJ SCH (08:38)
[2018-12-14] MEDS ORDERED: VENOFER 200 MG in NS 100 ML IV ONE (09:01)
[2018-12-14] MEDS ORDERED: NS 500 ML IV ONE (09:03)
--- NOTE | 2018-12-14 09:21 | PROGRESS NOTE ---
DATE: 12/14/2018 SUBJECTIVE: Ms. Israel feels better, but still pretty weak. Her hemoglobin was 7 and hematocrit 21. OBJECTIVE: Exam today, she is awake, alert, and oriented x3. Temperature 97.7 degrees, pulse 79, respirations 20, and blood pressure 140/74.HEENT: Pupils are equal and round. Lungs: Clear in all lung baca. Cardiovascular: Regular rhythm and rate without murmur or S3. Abdomen: Soft. Skin: Warm and dry. Urine output was about 6.7 L so excellent urine output. ASSESSMENT AND PLAN: Schatzki's ring found at 35 cm. She had 3 ulcers in the stomach I think, and no active bleeding. She has microcytic anemia. I am going to go ahead and give her some more blood today, and give her some iron IV. Hopefully, we can go home this afternoon. She works at [id number], and would like to go back to work on Tuesday. She is already on iron carbonyl and ascorbic acid cc: Michael Blount MD
--- NOTE | 2018-12-14 16:05 | GASTROENTEROLOGY PROGRESS NOTE ---
DATE: 12/14/2018 SUBJECTIVE: Patient resting in bed. She is feeling better. She denies any nausea, vomiting, vomiting blood, or passing blood in the stools. OBJECTIVE: Vital signs: Temperature 98.2 degrees, pulse rate 73, respiratory rate 16, blood pressure 122/70 satting 98% on room air. Body weight of 172 pounds 12.8 ounces. BMI 28.1 kg. General appearance: The patient is moderately malnourished, lying in bed in no acute distress. HEENT: Pale conjunctivae. No icterus. Neck: Supple. Abdomen: Soft, nontender, nondistended. No guarding or rebound. Extremities: No clubbing, cyanosis. Neurologic: Neuro monterroso, she is alert, awake, oriented x3. LABS: H and H 7.1 and 21.9, white count of 6.6, platelet count of 341. The patient has received a total of 4 units of blood transfusion. She is getting 1 more unit of blood transfusion at the moment. IMPRESSION AND PLAN: 1. Bleeding gastric ulcers. Continue proton pump inhibitors twice daily. Transfuse blood to keep the hemoglobin goal of 7 to 8 g/dL. She has had [address] Spear; both have shown evidence of gastric ulcers. 2. Esophageal ulcer, aware. She will continue with proton pump inhibitors. 3. Hypertension, aware. This is being managed by the primary care team. 4. Nausea and vomiting. Continue antiemetics as needed. 5. Anemia. Continue to watch for now. Transfuse as needed. 6. History of small-bowel angiectasias in the past, aware. 7. History of prior peptic ulcer disease, aware. 8. Deep vein thrombosis prophylaxis with sequential compression devices. We will start on iron C and multivitamins once daily. Continue on gastrointestinal soft diet for now. She is also getting iron infusion by the primary team. She will continue on Carafate 1 g 6 hours for total of 4 to 6 weeks. The above plans discussed with the patient. All questions answered. Please call us with any further questions. cc: MD Michael Gardner MD Alicia L. Hamman, CRNP
[2018-12-14 16:06] VITALS: BP 116/76
--- NOTE | 2018-12-14 17:33 | DISCHARGE SUMMARY ---
ADMISSION DATE: 12/08/2018 DISCHARGE DATE: 12/14/2018 PRIMARY CARE PROVIDER: FLORENTIN Conley. ADMITTING DOCTOR: Dr. Jose A Rae. HISTORY: She is 63-year-old female who presented to the emergency room with a past medical history of GI bleeding and ulcer which was cauterized by Dr. Tillman 2 years ago, hypertension, arthritis, tumor of pituitary gland, increased prolactin levels. The patient states that she started having vomiting, dark bloody emesis. States she did have this at least 2 times the day of admission. Also dark tarry stools and some blood noted in the stool in the emergency room. The patient was not complaining of any abdominal pain. Patient does not admit to taking any [id number] nonsteroidal anti-inflammatories or aspirin. She does have arthritis but takes [place] 10 mg twice a day for that. The patient was not complaining of any abdominal pain. No troubles with urination. In the emergency room white count was 11,410, hemoglobin 7.8, hematocrit 24.7. PAST MEDICAL HISTORY: 1. GI bleed with ulcer, cauterized by Dr. Tillman 2 years ago. 2. Hypertension. 3. Arthritis. 4. Depression. 5. 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 PAST SURGICAL HISTORY: Hysterectomy, , and breast reduction. HOSPITAL COURSE: So, admitted with gastrointestinal bleed to the ICU, having acute blood loss. She had vomited a couple times, dark emesis. Also bloody stool noted in the emergency room. Was transfused 1 unit of packed red blood cells and following hematocrit and hemoglobin. She had a GI consultation 12/09. She has a history of gastric ulcers, esophageal ulcer, duodenal diverticulum, bleeding duodenal ulcer, and angiectasias, and presented with acute blood loss. Her hemoglobin was 7.2. Received 1 unit of packed red blood cells and they put her on high-dose proton pump inhibitor, Nexium 40 mg IV q.12. She underwent EGD per Dr. Spear. He found 3 nonbleeding, clean- based ulcers ranging between 3 to 8 mm in size. Stomach was otherwise normal. In the duodenum two large diverticulum were found in the 2nd part of the duodenum. No stigmata of recent bleeding. Continued proton pump inhibitors. Her hematocrit and hemoglobin dropped a little more. I gave her 2 units of packed red blood cells when her hemoglobin was down. When she presented hemoglobin was 7.3. Hemoglobin dropped to 5.7. Gave her 2 units and it came up to 7.7. She appeared iron deficient with an MCV of 99 so I gave her a little bit of iron and gave her 2 more units of packed red blood cells and felt she was ready go home. He did do another EGD to follow up and did not find any active bleeding; that was done on 12/13. So we will discharge her home. Follow up with Candy Shelby. DISCHARGE MEDICATION: Fioricet, she had some headaches and they seemed to help well, so I gave her prescription for Fioricet. Put her on Nexium 40 mg p.o. twice a day, Icar C 1 twice a day, Centrum Silver once a day, and Carafate 1 g q.6 hours which she will take for, I think, 6 weeks. Put her back on her citalopram 60 mg a day. She was taking hydrocodone 10 mg b.i.d. and her lisinopril 20 mg a day, triamterene hydrochlorothiazide 37.5/25 one a day, and cabergoline 2 mg as directed. cc: Michael Blount MD
[2018-12-14 18:06] LABS: BASO# 0.05 X1000 (0.0-0.2); BASO% 0.5 % (0.0-0.8); EOS# 0.16 X1000 (0.0-0.7); EOS% 1.7 % (0.0-10.0); HEMATOCRIT 28.9 % (37.0-47.0); HEMOGLOBIN 9.9 g/dL (12.0-16.0); IMM GRAN# 0.02 X1000 (0.0-0.04); IMM GRAN% 0.2 % (0.0-0.5); LYMPH# 1.74 X1000 (1.2-3.4); LYMPH% 18.9 % (20.5-51.1); MCH 31.5 PG (27-31); MCHC 34.3 g/dL (33-37); MONO# 0.82 X1000 (0.11-0.59); MONO% 8.9 % (1.7-9.3); MPV 8.7 FL (7.4-10.4); NEUT# 6.43 X1000 (1.4-6.5); NEUT% 69.8 % (42.2-75.2); PLT 372 X1000 (130-400); RBC 3.14 XMIL (4.2-5.4); RDW 17.8 % (11.5-14.5); WBC 9.22 X1000 (4.8-10.8)
== END 2018-12-14 18:15 | disposition home or self-care (01) | DRG 378 ==
LOC: ED 20:25 → SUATTDRO 12-09 00:47 → EDIPHOLD 12-09 00:47 → ICU 12-09 02:20 → EDIPHOLD 12-09 02:31 → ICU 12-09 02:34 → EDIPHOLD 12-09 02:35 → ICU 12-09 08:55 → 4N 12-11 11:08
PROVIDERS: ADMIT Emergency Medicine; ATTEND Emergency Medicine